=== PATIENT | female | born 1975 | race Caucasian/White ===

== ENCOUNTER 2016-09-24 11:52 | Day surgery (SDC) | payer OTHER ==
[~2016-09-24] VITALS: Ht 157.5 cm; Wt 59.9 kg
[~2016-09-24 11:52] MED LIST: ALPR0.5T8 PO; MDR150V IM; VENL150C98 PO; VENL75CA95 PO
[2016-09-24] MEDS ORDERED: Ondansetron 2 mg/mL 2 mL Inj ONE (11:53)
[2016-09-24] MEDS ORDERED: fentaNYL-PF 50 mCg/mL 2 mL Inj ONE (11:53)
[2016-09-24] MEDS ORDERED: MetoCLOpramide 5 mg/mL 2 mL Inj ONE (11:53)
[2016-09-24] MEDS ORDERED: Glycopyrrolate 0.2 mg/mL 5 mL Inj ONE (11:53)
[2016-09-24] MEDS ORDERED: Propofol 10,000 mCg/mL 20 mL Inj ONE (11:53)
[2016-09-24] MEDS ORDERED: Neostigmine 1 mg/mL 5 mL Inj ONE (11:53)
[2016-09-24] MEDS ORDERED: Dexamethasone 4 mg/mL Inj ONE (11:53)
[2016-09-24] MEDS ORDERED: Succinylcholine Chloride 20 mg/mL 5 mL Inj ONE (11:53)
[2016-09-24] MEDS: Lactated Ringer's 1,000 ML IV SCH ×3 (11:55→15:11)
[2016-09-24 12:20] VITALS: BP 117/82; PULSE 73; RESP 18; O2SAT 96
[2016-09-24 13:03] VITALS: BP 117/82; PULSE 73; RESP 18; O2SAT 96
[2016-09-24] MEDS ORDERED: AMLO2.5T PO (13:13)
--- NOTE | 2016-09-24 15:11 | PCM.HPANE ---
Patient Data Surgeon Admitting Provider: Attending Provider:Berry Wasserman MD Primary Care Physician:Leelee Bello MD Other Provider:Blanca Mohamudingham Anesthesia Reason for Visit Family Planning Ht/WT & BMI Height (Feet): 5 Height (Inches): 2 Weight (Kilograms): 59.91 Body Mass Index 24.00 Allergies Uncoded Allergies: seasonal allegies (Allergy, Unknown, 09/10/14) WELBUTRIN (Adverse Reaction, Intermediate, 09/24/16) Medications Reported Medications Amlodipine 2.5 Mg Tablet2.5 Mg PO DAILY Ref 0 09/24/16 Venlafaxine ER 75 Mg Cap.er.24h75 Mg PO DAILY Ref 0 08/18/16 Medroxyprogesterone Acetate (Depo-Provera)150 Mg/Ml [id number] Mg IM Q3M control bilatarl tubal ligation surgery planned 08/18/16 Alprazolam 0.5 Mg Tablet0.5 Mg PO HS PRN For Anxiety Ref 0 08/18/16 Discontinued Reported Medications Venlafaxine ER 150 Mg Cap.er.[id number] Mg PO DAILY Ref 0 08/18/16 Calcium Carbonate (Calcium)500 Mg Tab.[id number] Mg PO 09/10/14 History History of ENT Problems?: No Hx of Heart Problems?: No Hx of Respiratory Problem?: No Hx Neurologic Problems?: No Hx of GI Problems?: No Hx of Problems?: No Female Hx: Denies:: Currently Skin History: Positive for:: History Skin Disorders? (HX OF L ARM ABSCESS AND SCABIES) Hx Musculoskeletal Problems?: No Hx of Psycho/Social Problems?: Yes Psycho Social History: Positive for:: Anxiety Hx Depression Hx Any Other Health Problems?: Yes Hx Alcohol Use: No Stop/Bang S-Snoring: Do You Snore Loudly: No T-Tired: feel tired, fatigued: No O-Obsered: Observed not breath: No P-Blood Pressure: treated: No B- Body Mass Index > 35 kg/m2: No A- Age over 50: No N- Neck Large Circumference: No G- Gender Male: No GERRY Total Score: 0 Risk Assessment Category Category 1A: Patient has history of documented sleep apnea, and HAS NOT received any narcotic, sedative or anesthesia administration during this stay. Category 1B: Patient has history of documented sleep apnea, and HAS received any narcotic , sedative or anesthesia administration during this stay Category 2: Patient has SUSPECTED Obstructive Sleep Apnea, and HAS received any narcotic , sedative or anesthesia administration during this stay. Category 3: Patient has SUSPECTED Obstructive Sleep Apnea and HAS NOT received narcotic, sedative or anesthesia administration during this stay. Category 4: Outpatient in Procedural Areas with known sleep apnea or who screen positive for High Risk via the STOP/BANG questionnaire. Exam Exam General Appearance: Alert, Oriented X3, Cooperative, No Acute Distress HEENT/AIRWAY: MP 1 Lungs: Clear to Auscultation Heart: Exam Unremarkable Plan Impression Patient chart reviewed, patient interviewed and anesthestic plan with risks, benefits, and alternatives discussed, and informed consent obtained. ASA Physical Status: ASA2 Mod Systemic Disease Anesthetic Plan: GA Bene/Risks/Altern/Consents: Yes HP Complete Prior to Induction: Yes Kenneth Bermudez MD Sep 24, 2016 07:51
[2016-09-24] MEDS ORDERED: Bupivacaine-MPF 0.5% W/EPI 30 mL Inj INJ ONE (15:41)
[2016-09-24] MEDS ORDERED: Lactated Ringer's 1,000 ML IV SCH (15:47)
[2016-09-24] MEDS ORDERED: Lactated Ringer's 500 ML IV PRN (15:47)
[2016-09-24] MEDS ORDERED: Phenylephrine 10,000 mCg/mL Inj IVPUSH PRN (15:50)
[2016-09-24] MEDS ORDERED: EPHEDrine Sulfate 50 mg/mL Inj IVPUSH PRN (15:50)
[2016-09-24] MEDS ORDERED: Dexamethasone 4 mg/mL Inj IVPUSH PRN (15:50)
[2016-09-24] MEDS ORDERED: Ondansetron 2 mg/mL 2 mL Inj IVPUSH PRN ×2 (15:50→16:25)
[2016-09-24] MEDS ORDERED: MetoCLOpramide 5 mg/mL 2 mL Inj IVPUSH PRN ×2 (15:50→16:25)
[2016-09-24] MEDS ORDERED: HYDROmorphone 1 mg/mL Inj IVPUSH PRN (15:50)
[2016-09-24] MEDS ORDERED: fentaNYL-PF 50 mCg/mL 2 mL Inj IVPUSH PRN (15:50)
[2016-09-24 16:12] VITALS: BP 123/74; PULSE 70; RESP 18; O2SAT 96
[2016-09-24 16:19] VITALS: BP 120/80; PULSE 68; RESP 18; O2SAT 97
--- NOTE | 2016-09-24 16:20 | PCM.ANEP1 ---
Post Anesthesia Phase 1 PACU Phase 1 Assessment Vital Signs Vital Signs Date Time Temp Pulse Resp B/P Pulse Ox O2 Delivery O2 Flow Rate FiO2 09/24/16 13:03 37.1 73 18 117/82 96 Room Air 09/24/16 12:20 37.1 73 18 117/82 96 Room Air Anesthetic Administered: GA Level of Alertness: Awake, talking HAMILTON's with Equal Strength: Yes Pain: No Nausea or Vomiting: No Oxygen Delivery: Room Air Lungs: Clear to Auscultation Dermatome Level: Full Sensation Kenneth Bermudez MD Sep 24, 2016 16:20
[2016-09-24 16:25] VITALS: BP 116/76; PULSE 64; RESP 14; O2SAT 100
[2016-09-24] MEDS ORDERED: oxyCODONE-Acetamin 5-325 mg Tablet PO PRN (16:25)
[2016-09-24] MEDS ORDERED: diphenhydrAMINE 25 mg Capsule PO PRN (16:25)
--- NOTE | 2016-09-24 16:27 | PCM.DIMED ---
Discharge Instructions Date of Service Sep 24, 2016 Dates of Hospitalization Diet No restrictions Activity No restrictions Call your provider Fever or Chills, Shortness of breath, Bleeding, Chest pain, Vomitting, Weakness (unilateral) Patient Instructions Follow-up with PCP in: 2 weeks Berry Wasserman MD Sep 24, 2016 16:27
--- NOTE | 2016-09-24 16:31 | PCM.ANEP2 ---
Post Anesthesia Evaluation ASA/CMS Post Anesthesia VS in Patient's Normal Range?: Yes Resp Stable; Airway Patent?: Yes CV Function & Hydration Stable: Yes Mental Status Recovered?: Yes Pain control Satisfactory?: Yes N/V Control Satisfactory?: Yes Kenneth Bermudez MD Sep 24, 2016 16:31
--- NOTE | 2016-09-24 17:01 | OP ---
[address] [address] OPERATIVE REPORT PATIENT: ELISABET RUSSO : 1975 MR#: [id number] ADMIT: 09/24/2016 JOB ID: [id number] DATE OF SURGERY: 09/24/2016 PROCEDURE: Laparoscopic bilateral tubal ligation. PREOPERATIVE DIAGNOSIS(ES): Sterilization. POSTOPERATIVE DIAGNOSIS(ES): Sterilization. SURGEON: Berry Wasserman MD TRANSPORTATION DRIVER: None. ANESTHESIA: Kenneth Bermudez MD, general. ESTIMATED BLOOD LOSS: 5 mL ESTIMATED URINE OUTPUT: 50 mL FLUIDS: 600 mL of lactated Ringer's. COMPLICATIONS: None. FINDINGS: Normal appearance of external genital and the cervix. The uterus is normal in size. Adhesions between the uterus and anterior abdominal wall extending from the lower uterine segment to the mid portion of the uterus, probably as a result of prior . Right adnexa is unremarkable. Normal tube and normal ovary. On the left side, however, there is an atrophic ovary measuring about 0.5 cm and absent left fallopian tube. PROCEDURE: The patient was brought to the operating room, where she underwent general anesthesia without difficulty. The patient was placed in the dorsal lithotomy position using Thanh stirrups. She was prepped and draped in the usual surgical fashion. A time-out was performed verifying correct patient and correct procedure. A Alton speculum was placed into the vagina. The cervix was visualized and grasped with a tenaculum. Dilated with Hegar dilators to 6 mm. The tenaculum was removed and a Parso uterine manipulator was placed. The speculum was removed. Attention was then directed to the patient's abdomen where a Veress needle was introduced through the umbilicus. CO2 gas was insufflated with appropriate pneumoperitoneum achieved. The Veress needle was removed. A 5 mm vertical subumbilical incision was made with a scalpel. A 5 mm trocar was introduced. With a 30 degree scope the pelvis was reviewed with the findings mentioned above. One additional 5 mm skin incision was made in the right lower uterine segment, 5 cm medial and superior from anterior superior iliac spine. A 5 mm trocar was placed through the incision. Using a LigaSure instrument, the patient's right fallopian tube was transected 3 cm away from the right cornua of the uterus. This was transected and ligated in three different places 1 cm apart from each other. Images were obtained. Attention was directed to the patient's contralateral side. The ovary on that side was very small, measuring about 0.5 mm. Left round ligament was identified. The left fallopian tube could not be identified. Adhesions between the ovary and round ligament and pelvic sidewall were lysed with the LigaSure instrument. Images were obtained. No fallopian tube was seen. Good hemostasis was assured and all the instruments were removed. The abdomen was desufflated from the CO2 gas. The trocars were removed. The skin incisions were closed with 4-0 Monocryl. Dermabond glue was applied. Hemostatic dressings were applied. Hulka uterine manipulator was removed from the vagina. Good hemostasis was reassured at the site of the cervix. The patient was repositioned back into the supine position. She tolerated the procedure well and was transferred to the recovery room in stable condition. SEBASTIÁN
== END 2016-09-24 23:59 | disposition home or self-care (01) ==
LOC: SAS 11:52
PROVIDERS: ATTEND Legal Medicine
PROC: 0U554ZZ Destruction of Right Fallopian Tube, Percutaneous Endoscopic Approach (ICD-10-PCS; principal; 2016-09-24 12:45)
DX: Z30.2 Encounter for sterilization (principal); F41.9 Anxiety disorder, unspecified; F32.9 Major depressive disorder, single episode, unspecified; M54.9 Dorsalgia, unspecified
CPT/HCPCS: 58670; J0330; J1100; J2405; J2710; J2765; J7120